=== PATIENT | male | born 1995 | race Hispanic/Latino ===

== ENCOUNTER 2019-12-17 22:34 | Emergency (ER) | payer OTHER ==
[~2019-12-17] VITALS: Ht 172.7 cm; Wt 67.1 kg
[2019-12-17] MEDS ORDERED: LIDOCAINE 1% SDV 5ML VIAL DILUENT ONE (23:30)
[2019-12-17] MEDS ORDERED: AZITHROMYCIN 250MG TABLET PO ONE (23:30)
[2019-12-17] MEDS ORDERED: cefTRIAXone SOD 250MG VIAL (J0696 PER 250MG) IM ONE (23:30)
[2019-12-17 23:59] VITALS: BP 138/71
[2019-12-18 01:23] LABS: CHLAMYDIA DNA AMPLIFICATION POSITIVE (NEGATIVE); GC DNA AMPLIFICATION NEGATIVE (NEGATIVE)
[2019-12-19 11:43] LABS: HEPATITIS A ANTIBODY IGM NEGATIVE (NEGATIVE); HEPATITIS B CORE ANTIBODY IGM NEGATIVE (NEGATIVE); HEPATITIS B SURFACE ANTIGEN NEGATIVE (NEGATIVE)
[2019-12-19 19:27] LABS: HSV IgM TYPES 1&2 <0.91 Ratio (0.00-0.90)
== END 2019-12-18 00:06 | disposition home or self-care (01) ==
LOC: M ED 22:34
DX: Z20.2 Contact with and (suspected) exposure to infections with a predominantly sexual mode of transmission (principal)
CPT/HCPCS: 81001; 86694; 86705; 86709; 86780; 86803; 87086; 87340; 87661; 96372; 99283; J0696